=== PATIENT | male | born 1940 | race Caucasian/White ===

== ENCOUNTER 2025-03-10 14:10 | Inpatient (IN) | payer OTHER ==
[2025-03-10 15:31] VITALS: BMI 27.1
[2025-03-10] MEDS ORDERED: HALOPERIDOL LACTATE 5 MG/ML ONE ×2 (15:40→16:10)
[2025-03-10] MEDS: HALOPERIDOL LACTATE 5 MG/ML IM ONE (15:52)
[2025-03-10 15:53] LABS: ABSOLUTE IMMATURE GRANULOCYTES 0.03 x10^3/uL (0.0-0.031); BASOPHILS # 0.05 x10^3/uL (0.01-0.08); EOSINOPHIL % 1.7 % (0.8-7.0); EOSINOPHILS # 0.17 x10^3/uL (0.04-0.54); HEMATOCRIT 42.3 % (40.1-51.0); HEMOGLOBIN 13.2 g/dL (13.7-17.5); MCHC 31.2 g/dl (32.3-36.5); MEAN CELL VOLUME 94.4 fl (79.0-92.2); MEAN PLT VOLUME 11.7 fl (9.4-12.4); MONOCYTE # 0.51 x10^3/uL (0.30-0.82); PLATELET COUNT 190 x10^3/uL (163-337); RDW 14.4 % (12.6-16.6)
[2025-03-10] MEDS ORDERED: HALOPERIDOL LACTATE 5 MG/ML IM ONE (15:54)
[2025-03-10 15:57] LABS: EPI CELLS 5 /uL (0-25.1); HYALINE CASTS 0 /uL (0-3.1); PH,URINE 5.5 (5.0-8.0); URINE APPEARANCE TURBID; URINE BACTERIA >9,000 /uL (0-1359); URINE BILIRUBIN NEGATIVE (NEGATIVE); URINE COLOR YELLOW; URINE GLUCOSE (UA) NEGATIVE (NEGATIVE); URINE KETONE NEGATIVE (NEGATIVE); URINE LEUK ESTERASE 3+ (NEGATIVE); URINE NITRITE NEGATIVE (NEGATIVE); URINE PROTEIN 1+ (NEGATIVE); URINE RBC 84 /uL (0-23.9); URINE UROBILINOGEN 0.2 mg/dL (0.2-1.0); URINE WBC 6748 /uL (0-25.8)
[2025-03-10] MEDS ORDERED: CEFTRIAXONE 1 GM/50 ML BAG ONE (16:05)
[2025-03-10 16:13] LABS: ALBUMIN 4.1 g/dl (3.4-5.0); BLOOD UREA NITROGEN 26.8 mg/dL (7-18); CALCIUM 10.1 mg/dL (8.5-10.1)
[2025-03-10 16:16] LABS: CREATININE 1.5 mg/dL (0.55-1.3)
[2025-03-10 16:18] LABS: BILIRUBIN,TOTAL 0.7 mg/dL (0.2-1); TOT PROT 7.6 g/dl (6.4-8.2)
[2025-03-10] MEDS: HALOPERIDOL LACTATE 5 MG/ML IVPUSH ONE (16:27)
[2025-03-10] MEDS: SODIUM CHLORIDE 1,000 ML IV SCH (19:25)
[2025-03-10] MEDS: propRANOLol HCL 10 MG TABLET PO SCH (21:12)
[2025-03-10] MEDS: levETIRAcetam 250 MG TABLET PO SCH (21:12)
[2025-03-10] MEDS ORDERED: HEPARIN NA (PORCINE) 5,000 UNITS/ML 1ML VIAL SQ SCH (22:00)
[2025-03-11] MEDS: BREXPIPRAZOLE (REXULTI) 1 MG TABLET (RESTRICTED TO PSYCIATRY) PO SCH (06:25)
[2025-03-11] MEDS: TAMSULOSIN HCL 0.4 MG CAP PO SCH (08:38)
[2025-03-11 09:11] LABS: HEMATOCRIT 35.7 % (40.1-51.0); MCHC 30.8 g/dl (32.3-36.5); MEAN CELL VOLUME 93.9 fl (79.0-92.2); MEAN PLT VOLUME 12.1 fl (9.4-12.4); PLATELET COUNT 141 x10^3/uL (163-337); RDW 14.6 % (12.6-16.6)
[2025-03-11 09:41] LABS: POTASSIUM 4.2 mmol/L (3.5-5.1)
[2025-03-11] MEDS: CEFTRIAXONE 1 GM in DEXTROSE 5%-WATER - 50 ML IVPB SCH (10:04)
[2025-03-11 10:07] LABS: ALBUMIN 3.3 g/dl (3.4-5.0); BLOOD UREA NITROGEN 35.2 mg/dL (7-18); CALCIUM 9.5 mg/dL (8.5-10.1); MAGNESIUM 2.1 mg/dL (1.8-2.4)
[2025-03-11 10:10] LABS: CREATININE 1.7 mg/dL (0.55-1.3); PHOSPHOROUS 4.7 mg/dL (2.5-4.9)
[2025-03-11] MEDS: HEPARIN NA (PORCINE) 5,000 UNITS/ML 1ML VIAL SQ SCH (10:11)
[2025-03-11 10:12] LABS: BILIRUBIN,TOTAL 0.6 mg/dL (0.2-1)
[2025-03-11] MEDS: SODIUM CHLORIDE 0.45% 1,000 ML IV SCH (15:31)
[2025-03-12] MEDS: HALOPERIDOL LACTATE 5 MG/ML IM ONE ×2 (14:20→17:35)
[2025-03-12] MEDS: MEROPENEM 1 GM in DEXTROSE 5%-WATER 100 ML IVPB SCH ×2 (15:30→21:19)
[2025-03-14] MEDS: ERTAPENEM SODIUM 1 GM in SODIUM CHLORIDE 50 ML IVPB SCH (14:33)
[2025-03-14] MEDS: MEROPENEM 1 GM in DEXTROSE 5%-WATER 100 ML IVPB SCH (20:06)
[2025-03-15] MEDS: HALOPERIDOL LACTATE 5 MG/ML IM PRN (10:32)
[2025-03-15] MEDS: OLANZapine 5 MG TABLET PO SCH (21:45)
[2025-03-16] MEDS: FOSFOMYCIN TROMETHAMINE 3 GM/PKT FOR ORAL SOLUTION PO ONE (09:11)
[2025-03-16] MEDS: ACETAMINOPHEN 325 MG TABLET (FP) PO PRN (11:32)
[2025-03-16 11:56] VITALS: PULSE 65; TEMP 97.9
[2025-03-16 13:18] VITALS: BP 112/64; RESP 18
== END 2025-03-16 14:17 | DRG 689 ==
LOC: JER 14:10 → JERBED 16:14 → J5S 19:36
PROVIDERS: ADMIT Internal Medicine; ATTEND Internal Medicine
DX: N39.0 Urinary tract infection, site not specified (principal); G93.41 Metabolic encephalopathy; S06.9XAA Unspecified intracranial injury with loss of consciousness status unknown, initial encounter; Z16.12 Extended spectrum beta lactamase (ESBL) resistance; G20.A1 Parkinson's disease without dyskinesia, without mention of fluctuations; N40.0 Benign prostatic hyperplasia without lower urinary tract symptoms; B96.1 Klebsiella pneumoniae [K. pneumoniae] as the cause of diseases classified elsewhere; S06.9X0A Unspecified intracranial injury without loss of consciousness, initial encounter; X58.XXXA Exposure to other specified factors, initial encounter; Y93.9 Activity, unspecified; Y92.89 Other specified places as the place of occurrence of the external cause; Y99.9 Unspecified external cause status; R45.87 Impulsiveness; R45.1 Restlessness and agitation
CPT/HCPCS: 36415; 76775-TC; 80053; 81003; 82043; 82570; 83735; 83935; 84100; 84133; 84300; 84484; 85025; 85027; 87086; 93005; 93010; 99285-25